=== PATIENT | male | born 1955 | race Caucasian/White ===

== ENCOUNTER 2017-08-11 13:03 | Emergency (ER) | payer OTHER ==
[2017-08-11 13:10] VITALS: BP 173/102
[2017-08-11] MEDS ORDERED: Lidocaine 1% 50 ML MDV INJECT ONE (13:38)
--- NOTE | 2017-08-11 13:43 | EDM.PDOC ---
ED HPI GENERAL MEDICAL PROBLEM - General Chief Complaint: Upper Extremity Injury/Pain Stated Complaint: LEFT FINGER LAC Time Seen by Provider: 08/11/17 13:36 Source of Information: Reports: Patient History Limitations: Reports: No Limitations - History of Present Illness INITIAL COMMENTS - FREE TEXT/NARRATIVE: Patient is a 61-year-old male presents ED complaining of a laceration/partial amputation of the distal tip of the left index finger. Patient was utilizing a table saw when this occurred. Bleeding is controlled. Pain is a 5 out of 10 described as a throbbing sensation. No sensory deficits noted. No other complaints. Tetanus status is up-to-date. Treatments HOME HEALTH OCCUPATIONAL THERAPIST: Reports: Other (see below) Other Treatments HOME HEALTH OCCUPATIONAL THERAPIST: WRAPPED TO CONTROL BLEEDING Left 2-Index finger Pain Score (Numeric/FACES): 7 - Related Data Allergies Allergy/AdvReac Type Severity Reaction Status Date / Time No Known Allergies Allergy Verified 08/11/17 13:14 Home Meds: Home Meds Cholecalciferol (Vitamin D3) [Vitamin D3] 1,200 unit PO DAILY 08/11/17 [History] Donepezil [Aricept] 5 mg PO DAILY 08/11/17 [History] Memantine HCl [Namenda] 10 mg PO DAILY 08/11/17 [History] Potassium Chloride 10 meq PO DAILY 08/11/17 [History] Past Medical History Cardiovascular History: Reports: Hypertension Neurological History: Reports: Other (See Below) Other Neuro History: DEMENTIA - Past Surgical History HEENT Surgical History: Reports: Adenoidectomy, Tonsillectomy Social & Family History - Tobacco Use Smoking Status *Q: Never Smoker - Caffeine Use Caffeine Use: Reports: Coffee - Recreational Drug Use Recreational Drug Use: No Review of Systems - Review of Systems Review Of Systems: ROS reveals no pertinent complaints other than HPI. ED EXAM, GENERAL - Physical Exam Exam: See Below Exam Limited By: No Limitations General Appearance: Alert, WD/WN, No Apparent Distress Ears: Hearing Loss Nose: Normal Inspection Throat/Mouth: Normal Voice, No Airway Compromise Neck: Normal Inspection, Supple Respiratory/Chest: No Respiratory Distress, No Accessory Muscle Use Cardiovascular: Normal Peripheral Pulses, Regular Rate, Rhythm Peripheral Pulses: 2+: Radial (L) Extremities: Other (Distal tip of the left index finger: laceration present extending into the nailbed. loss of tissue present. no bone exposure noted. no sensory/motor deficits noted. ) Neurological: Alert, Oriented, CN II-XII Intact, Normal Cognition, No Motor/ Sensory Deficits Psychiatric: Normal Affect, Normal Mood Course - Vital Signs Last Recorded V/S: Last Vital Signs Temp 97.0 F 08/11/17 13:09 Pulse 65 08/11/17 13:09 Resp 20 08/11/17 13:09 BP 173/102 H 08/11/17 13:09 Pulse Ox 94 L 08/11/17 13:09 - Orders/Labs/Meds Orders: Active Orders 24 hr Category Date Time Status Fingers Second Digit Lt F1 [CR] Stat Exams 08/11/17 13:38 Taken Meds: Medications Discontinued Medications Generic Name Dose Route Start Last Admin Trade Name Freq PRN Reason Stop Dose Admin Cefazolin Sodium 1 gm 08/11/17 14:49 08/11/17 15:35 Ancef IM 08/11/17 14:50 1 gm ONETIME ONE Administration Lidocaine HCl 50 ml 08/11/17 13:38 08/11/17 13:51 Xylocaine 1% INJECT 08/11/17 13:39 50 ml ONETIME ONE Administration - Re-Assessments/Exams Free Text/Narrative Re-Assessment/Exam: Order x-ray of the left index finger and 1% lidocaine for digital block. 08/11/17 14:49 X-ray revealed fracture of the distal phalanx with loss of bone. Ancef 1 gram IM ordered. Will treat for open fracture. Last meal was 12 pm central time per patient. Reexamination bone extends to the distal tip with inability to undermine and pull tissue adequately over. I did contact Dr. Zaidi continuous miner operator orthopedic surgeon at [facility] in [place]. He has accepted the patient and will see the patient in the E.D. Dressing applied per nursing staff. Patient will go by POV. Departure - Departure Time of Disposition: 15:43 Disposition: DC/Tfer to Acute Hospital 02 Condition: Good Clinical Impression: Open fracture Laceration of finger nail bed Qualifiers: Encounter type: initial encounter Qualified Code(s): S61.319A - Laceration without foreign body of unspecified finger with damage to nail, initial encounter - Discharge Information Instructions: Laceration Care, Adult, [id number] Referrals: Yuriy Zaidi MD [Ordering Only Provider] - Forms: ED Department Discharge Additional Instructions: As discussed go to the [facility] in [place]. Orthopedic surgeon will see you at that time. Nothing to eat or drink until evaluated by Dr. Zaidi. Elevate during the trip to reduce any discomfort. - My Orders Last 24 Hours: My Active Orders 08/11/17 13:38 Fingers Second Digit Lt F1 [CR] Stat - Assessment/Plan Last 24 Hours: My Active Orders 08/11/17 13:38 Fingers Second Digit Lt F1 [CR] Stat
[2017-08-11] MEDS ORDERED: ceFAZolin 1 GM Vial IM ONE (14:49)
--- NOTE | 2017-08-12 18:06 | CR ---
Left second finger: Four views of the left second finger were obtained. Comparison: No prior study. Minimal defect identified involving bone and soft tissue off the distal tip of the second finger compatible with minimal avulsion. Slight degenerative change noted within the DIP joint. No additional bony abnormality is seen. Impression: 1. Distal injury within the second finger as noted above. Other incidental finding. Diagnostic code #3
== END 2017-08-11 15:50 ==
LOC: JD.ED 13:03 → SUPCPDRO 13:03 → JD.ED 15:50
DX: S62.631B Displaced fracture of distal phalanx of left index finger, initial encounter for open fracture (principal); I10 Essential (primary) hypertension; Z79.899 Other long term (current) drug therapy; W31.2XXA Contact with powered woodworking and forming machines, initial encounter
CPT/HCPCS: 64450; 73140; 96372; 99284; J0690